=== PATIENT | male | born 1975 | race Caucasian/White ===

== ENCOUNTER → 2019-03-19 17:18 | Outpatient (CLI) | payer BC, SELFPAY ==
[2015-12-20 00:25] VITALS: BMI 51.2
[2019-03-19 18:03] LABS: Absolute Lymphocyte Count 2.07 X10^3/uL (0.83-4.51); Absolute Neutrophil Count 7.9 X10^3/uL (2.0-7.7); Basophil# 0.05 X10^3/uL; Basophil% 0.5 % (0-1); Eosinophil# 0.22 X10^3/uL; Hematocrit 41.7 % (40-54); Hemoglobin 13.2 g/dL (13.0-16.5); Lymphocyte # 2.07 X10^3/ul (4.0); Lymphocyte % 18.9 % (19-41); Mean Corp Hgb Conc 31.7 g/dL (32-36); Mean Corpuscular Hgb 27.1 pg (27.0-32.0); Mean Corpuscular Volume 85.6 fL (80-94); Mean Platelet Vol. 10.1 fl (6.2-12.0); Monocyte# 0.64 X10^3/uL; Monocyte% 5.8 % (0-10); NRBC Flagged by Analyzer 0 % (0-5); Neutrophil # 7.94 X10^3/uL (2.7-7.7); Neutrophil % 72.4 % (47-70); Platelet Count 274 K/mm3 (150-450); RBC Distribution Width CV 15.1 % (11.6-14.6); RBC Distribution Width SD 47.2 fl (35.1-43.9); Red Blood Count 4.87 M/mm3 (4.6-6.2)
[2019-03-19 18:32] LABS: ALB/GLOB Ratio 0.9 RATIO (0.9-2.4); AST(SGOT) 16 U/L (15-37); Alanine Aminotransfer ALT/SGPT 38 U/L (16-61); Albumin, Serum 3.7 g/dL (3.2-5.0); Alkaline Phosphatase 81 U/L (45-117); Anion Gap 7 (5-15); BUN 13 mg/dL (7-18); BUN/Creat Ratio 12.6 RATIO (10-20); Chloride 104 mmol/L (98-107); Creatinine, Serum 1.03 mg/dL (0.70-1.30); EST Glomerular Filtration Rate 84 mL/min (>60); Est Glom Filt Rate - Afr Amer 101 mL/min (>60); Globulin 3.9 g/dL (2.2-4.2); Glucose 86 mg/dL (74-106); Potassium 4.1 mmol/L (3.5-5.1); Protein, Total 7.6 g/dL (6.4-8.2); Sodium Level 141 mmol/L (136-145); Thyroid Stim Hormone (TSH) 1.46 uIU/mL (0.358-3.74)
== END ==
PROVIDERS: Family Provider Family Medicine; PCP Family Medicine; Visit Provider Family Medicine Geriatric Medicine
DX: Z00.00 Encounter for general adult medical examination without abnormal findings (principal)
CPT/HCPCS: 36415; 80053; 84443; 85025

== ENCOUNTER → 2019-03-19 17:41 | Outpatient (CLI) | payer BC, SELFPAY ==
--- NOTE | 2019-03-19 17:50 | RAD_ITS ---
STUDY: X-RAY - RIGHT FOOT CLINICAL: Male, 44 years old. Trauma TECHNIQUE: 3 view(s) of the foot. COMPARISON: None. FINDINGS: There is no evidence of fracture or dislocation. Plantar calcaneal spurring is present. There are no significant degenerative changes. There are no radiodense foreign bodies. RAD/Foot min 3 Views IMPRESSION: No fracture or dislocation. Plantar calcaneal spurring. Electronically Signed: Nahun Sun, at 21:14 EDT Tel , Service support ,
== END ==
PROVIDERS: Family Provider Family Medicine; PCP Family Medicine; Visit Provider Family Medicine Geriatric Medicine
DX: M79.609 Pain in unspecified limb (principal)
CPT/HCPCS: 73630

== ENCOUNTER → 2019-09-19 16:05 | Outpatient (CLI) | payer BC, SELFPAY ==
[2015-12-20 00:25] VITALS: BMI 51.2
[2019-09-19 17:30] LABS: Absolute Lymphocyte Count 2.26 X10^3/uL (0.83-4.51); Absolute Neutrophil Count 8.2 X10^3/uL (2.0-7.7); Basophil# 0.05 X10^3/uL; Basophil% 0.4 % (0-1); Eosinophil# 0.25 X10^3/uL; Eosinophils% 2.1 % (0-5); Hemoglobin 13.5 g/dL (13.0-16.5); Lymphocyte # 2.26 X10^3/ul (4.0); Lymphocyte % 19.3 % (19-41); Mean Corp Hgb Conc 31.4 g/dL (32-36); Mean Corpuscular Hgb 27.1 pg (27.0-32.0); Mean Corpuscular Volume 86.3 fL (80-94); Mean Platelet Vol. 10.5 fl (6.2-12.0); Monocyte# 0.85 X10^3/uL; Monocyte% 7.2 % (0-10); NRBC Flagged by Analyzer 0 % (0-5); Neutrophil # 8.23 X10^3/uL (2.7-7.7); Neutrophil % 70.2 % (47-70); Platelet Count 304 K/mm3 (150-450); RBC Distribution Width CV 15.2 % (11.6-14.6); RBC Distribution Width SD 47.7 fl (35.1-43.9); Red Blood Count 4.98 M/mm3 (4.6-6.2); White Blood Count 11.7 K/mm3 (4.4-11.0)
[2019-09-19 17:58] LABS: ALB/GLOB Ratio 0.9 RATIO (0.9-2.4); AST(SGOT) 22 U/L (15-37); Alanine Aminotransfer ALT/SGPT 45 U/L (16-61); Albumin, Serum 3.8 g/dL (3.2-5.0); Alkaline Phosphatase 86 U/L (45-117); Anion Gap 3 (5-15); BUN 13 mg/dL (7-18); BUN/Creat Ratio 12.3 RATIO (10-20); Calcium,Total 8.8 mg/dL (8.5-10.1); Chloride 104 mmol/L (98-107); Creatinine, Serum 1.06 mg/dL (0.70-1.30); EST Glomerular Filtration Rate 81 mL/min (>60); Est Glom Filt Rate - Afr Amer 98 mL/min (>60); Globulin 4.2 g/dL (2.2-4.2); Glucose 97 mg/dL (74-106); Potassium 4.2 mmol/L (3.5-5.1); Sodium Level 138 mmol/L (136-145); Thyroid Stim Hormone (TSH) 1.28 uIU/mL (0.358-3.74)
== END ==
PROVIDERS: Visit Provider Family Medicine Geriatric Medicine
DX: I10 Essential (primary) hypertension (principal)
CPT/HCPCS: 36415; 80053; 84443; 85025

== ENCOUNTER → 2020-04-02 15:42 | Outpatient (CLI) | payer OTHER, SELFPAY ==
[2015-12-20 00:25] VITALS: BMI 51.2
[2020-04-02 16:06] LABS: Absolute Lymphocyte Count 1.35 X10^3/uL (0.83-4.51); Absolute Neutrophil Count 9.2 X10^3/uL (2.0-7.7); Basophil# 0.04 X10^3/uL; Basophil% 0.4 % (0-1); Eosinophil# 0.17 X10^3/uL; Eosinophils% 1.5 % (0-5); Hematocrit 41.3 % (40-54); Hemoglobin 13.2 g/dL (13.0-16.5); Lymphocyte # 1.35 X10^3/ul (4.0); Mean Corpuscular Hgb 27.7 pg (27.0-32.0); Mean Corpuscular Volume 86.6 fL (80-94); Mean Platelet Vol. 10.5 fl (6.2-12.0); Monocyte# 0.46 X10^3/uL; Monocyte% 4.1 % (0-10); NRBC Flagged by Analyzer 0 % (0-5); Neutrophil # 9.18 X10^3/uL (2.7-7.7); Neutrophil % 81.6 % (47-70); Platelet Count 288 K/mm3 (150-450); RBC Distribution Width CV 14.7 % (11.6-14.6); RBC Distribution Width SD 46.3 fl (35.1-43.9); Red Blood Count 4.77 M/mm3 (4.6-6.2); White Blood Count 11.3 K/mm3 (4.4-11.0)
[2020-04-02 16:31] LABS: AST(SGOT) 26 U/L (15-37); Alanine Aminotransfer ALT/SGPT 49 U/L (16-61); Albumin, Serum 3.9 g/dL (3.2-5.0); Alkaline Phosphatase 89 U/L (45-117); Anion Gap 3 (5-15); BUN 11 mg/dL (7-18); BUN/Creat Ratio 9.6 RATIO (10-20); Calcium,Total 8.7 mg/dL (8.5-10.1); Chloride 105 mmol/L (98-107); Creatinine, Serum 1.14 mg/dL (0.70-1.30); EST Glomerular Filtration Rate 74 mL/min (>60); Est Glom Filt Rate - Afr Amer 90 mL/min (>60); Globulin 3.9 g/dL (2.2-4.2); Glucose 145 mg/dL (74-106); Potassium 4.1 mmol/L (3.5-5.1); Protein, Total 7.8 g/dL (6.4-8.2); Sodium Level 139 mmol/L (136-145); Thyroid Stim Hormone (TSH) 1.05 uIU/mL (0.358-3.74)
== END ==
PROVIDERS: Visit Provider Family Medicine Geriatric Medicine
DX: I10 Essential (primary) hypertension (principal)
CPT/HCPCS: 36415; 80053; 84443; 85025

== ENCOUNTER → 2021-06-09 10:41 | Outpatient (CLI) | payer OTHER, SELFPAY ==
[2021-06-09 13:05] LABS: D-Dimer Quantitative (DVT/PE) 2.11 FEU/ug/m (0.27-0.49)
== END ==
PROVIDERS: Visit Provider Family Medicine Geriatric Medicine
DX: R00.0 Tachycardia, unspecified (principal); R06.89 Other abnormalities of breathing
CPT/HCPCS: 36415; 85379; 87635; U0005; U0003

== ENCOUNTER → 2021-06-11 14:15 | Outpatient (CLI) | payer OTHER, SELFPAY ==
--- NOTE | 2021-06-11 14:26 | CT_ITS ---
STUDY: CTA CHEST REASON FOR EXAM: Male, 46 years old. R/O PE. Elevated d-dimer. Shortness of breath. RADIATION DOSAGE (If Supplied By Facility): CTDIvol = ( 12.66 ) mGy, DLP = ( 535.50 ) mGycm TECHNIQUE: The examination was performed with the intravenous administration of IV 100mL [id number]-[id number]. Post-processing of the angiographic images was performed, with multiplanar reformation and 3D reconstruction. Individualized dose optimization techniques were used for this CT. COMPARISON: None. FINDINGS: Normal enhancement of the main pulmonary artery and right and left pulmonary arteries. Normal enhancement of the bilateral peripheral pulmonary arteries. There is no demonstrated pulmonary embolism. Normal thoracic aorta and visualized great vessels. There is no demonstrated aortic dissection. Normal heart and pericardium. Normal mediastinum. Normal hilar regions. Normal visualized trachea and bronchi. The lungs are well expanded. Infiltration in the right lower lobe in keeping with the right lower lobe pneumonia. Follow-up is recommended. Normal pleura. Normal chest wall structures. Normal osseous structures. Normal visualized upper abdomen. CT/CTA Chest W/WO Contrast IMPRESSION: Right lower lobe pneumonia. Radiographic follow-up is recommended. Electronically Signed: Nick Collins MD at 15:13 EDT , Service support ,
== END ==
PROVIDERS: PCP Family Medicine Geriatric Medicine; Visit Provider Family Medicine Geriatric Medicine
DX: R79.1 Abnormal coagulation profile (principal)
CPT/HCPCS: 71275; Q9967

== ENCOUNTER 2021-11-28 14:16 | Emergency (ER) | payer OTHER, SELFPAY ==
[2021-11-28 14:17] VITALS: BP 172/94; PULSE 94; RESP 18; TEMP 36.7; O2SAT 99; BMI 51.6
--- NOTE | 2021-11-28 14:41 | ED.VIS.LOWEX ---
HPI History of Present Illness HPI Narrative: Patient presents with right knee pain that began yesterday after a fall. Patient states he landed on the anterior aspect of his right knee. Patient states he fell on a piece of angle iron that was in concrete. Patient states his pain is sharp, aching, and throbbing. Patient states his pain is worse with palpation and with ambulation. Patient states he has been taking ibuprofen with minimal relief. Patient denies any paresthesias or weakness. Patient denies any head injury or loss of consciousness. Patient denies any other injuries. Chief Complaint: Lower Extremity Injury Informant: patient Occured/Mechanism Mechanism/Context: Yes fall Onset/Context/Timing Onset: Yesterday Context: Sudden Onset Timing: Continuous Quality of Pain: Sharp, Aching and Throbbing Location: Right knee Worsened by: Palpation, ambulation Relieved by: Ibuprofen Associated Symptoms Associated Symptoms: Negative for Parasthesia, Weakness and Loss of Funtion PFSH PFS Medical History (Updated 11/28/21 @ 15:[address] Dwight White DO) GERD (gastroesophageal reflux disease) Hypertension Home Medications omeprazole 20 mg PO DAILY 12/20/15 [History Last Taken Unknown] lisinopril 11/28/21 [History Last Taken Unknown] Allergy/AdvReac Type Severity Reaction Status Date / Time No Known Allergies Allergy Verified 11/28/21 14:18 Surgical History (Updated 11/28/21 @ 14:[address] Dwight White DO) Hx of tonsillectomy Social History Smoking Status: Never smoker ROS ROS ED Constitutional Constitutional ED: Denies chills or fever(s) Eyes Eyes: Denies blurry vision or change in vision ENT ENT ED: Denies rhinorrhea or sore throat Cardiovascular Cardiovascular: Denies chest pain or palpitations Respiratory/Chest Respiratory/Chest: Denies cough or dyspnea Gastrointestinal Gastrointestinal: Denies nausea or vomiting Genitourinary Genitourinary ED: Denies dysuria or hematuria Musculoskeletal Musculoskeletal: Denies back pain or neck pain Integumentary Denies abscess or rash Neurologic Neurologic: Denies headache(s) or weakness Allergic/Immunologic Allergic/Immunologic ED: Denies mouth swelling or urticaria EXAM Physical Exam Const Vital Signs: 11/28/21 14:17 Temperature 98.1 F Temperature Source Temporal Pulse Rate 94 Respiratory Rate 18 Blood Pressure 172/94 H Blood Pressure Mean 120 Pulse Ox 99 Oxygen Delivery Method Room Air Positive well nourished, well developed and obese General Appearance ED: well developed and NAD Nutritional Appearance: obese HEENT Reports moist mucous membranes Neck full ROM Extremity Extremity Narrative: There is tenderness over the anterior aspect of the right knee. There is a superficial linear abrasion noted. There is no bleeding. There is no surrounding erythema or ecchymosis. Range of motion of the right knee was limited in all motion secondary to pain. There is guarding on examination but there is no laxity appreciated. There is pain with valgus testing however. Extensor mechanism is intact. Pedal pulses are equal bilaterally. Sensation was intact to light touch in all digits. Capillary refill was less than 2 seconds in all digits. There is no calf tenderness. Neuro oriented x3, CN's II-XII intact bilaterally, moves all extremities and no sensory deficits noted Sensorium / Orientation: alert Motor Exam: strength 5/5 throughout Psych mental status grossly normal MDM MDM MDM Narrative Medical decision making narrative: X-rays of the right knee were obtained. There are 4 views. On my interpretation, there is no acute fracture. There is no dislocation. There is no soft tissue swelling. Radiologist also interpreted the x-rays and agrees. Patient was advised of his findings. Patient was instructed to ice and elevate the right knee. Patient was instructed to continue Tylenol and ibuprofen as needed for pain. Patient was instructed to follow-up with his primary care physician in 5 to 7 days. Patient understood and was agreeable with the plan. All questions were answered. Discharge Plan Triage Chief Complaint: Lower Extremity Injury ED Provider: Dwight White Dx/Rx/DC Orders Clinical Impression: Contusion of right knee, initial encounter, Abrasion, right knee, initial encounter Instructions: ED Contusion, Lower Extremity Prescriptions: No Action omeprazole 20 MG capsule 20 mg PO DAILY RF: 0 lisinopril 20 mg tablet RF: 0 Primary Care Provider: Francis Penn Chi Referrals: Francis Penn Chi, MD [Primary Care Provider] - 5-7 Days Disposition Disposition: Home, Self Care
--- NOTE | 2021-11-28 14:45 | RAD_ITS ---
STUDY: X-RAY - RIGHT KNEE REASON FOR EXAM: Male, 46 years old. Injury/Pain TECHNIQUE: 4 view(s) of the knee. COMPARISON: None. FINDINGS: Please see the impression. RAD/Knee 4 or More Views IMPRESSION: No acute fracture or dislocation in the right knee. No significant knee joint effusion. Electronically Signed: Fabian Rees MD at 15:24 EDT ,
== END 2021-11-28 15:33 | disposition home or self-care (01) ==
PROVIDERS: Emergency Provider Emergency Medicine; PCP Family Medicine Geriatric Medicine; Visit Provider Emergency Medicine
DX: S80.01XA Contusion of right knee, initial encounter (principal); S80.211A Abrasion, right knee, initial encounter; W19.XXXA Unspecified fall, initial encounter; I10 Essential (primary) hypertension; K21.9 Gastro-esophageal reflux disease without esophagitis
CPT/HCPCS: 73564; 99282

== ENCOUNTER 2022-04-04 22:31 | Emergency (ER) | payer OTHER, SELFPAY ==
[2022-04-04 22:32] VITALS: BP 188/98; PULSE 83; RESP 14; TEMP 37.2; O2SAT 98; BMI 52.0
--- NOTE | 2022-04-04 22:45 | EX.ED.DYSGE1 ---
HPI History of Present Illness Chief Complaint: Dental Narrative Narrative: Patient is a 47-year-old male with past medical history of hypertension and GERD. He also reports a history of bad teeth. He states that he noticed some pain in his left lower jaw a few days ago that would come and go. He denies any trauma prior to the pain beginning he denies any fevers chills difficulty breathing or swallowing. He states the pain has increased and he is concerned about an infectious process and therefore comes in for evaluation. PFSH PFSH Medical History GERD (gastroesophageal reflux disease) Hypertension Home Medications omeprazole 20 mg capsule,delayed release 20 mg PO DAILY 12/20/15 [History Last Taken Unknown] lisinopril 20 mg tablet 20 mg PO DAILY 11/28/21 [History Last Taken Unknown] oxycodone-acetaminophen 5 mg-325 mg tablet (Endocet) 1 tab PO Q6H PRN pain 3 days #12 tabs 04/04/22 [Rx Last Taken Unknown] penicillin V potassium 500 mg tablet 500 mg PO 4X/DAY #40 tabs 04/04/22 [Rx Last Taken Unknown] Allergy/AdvReac Type Severity Reaction Status Date / Time No Known Allergies Allergy Verified 04/04/22 23:01 Surgical History Hx of tonsillectomy Social History Smoking Status: Never smoker ROS ROS ED Constitutional Constitutional ED: Denies chills or fever(s) ENT ENT ED: Reports other Details: Positive dental pain ; Denies sore throat Cardiovascular Cardiovascular: Denies chest pain Respiratory/Chest Respiratory/Chest: Denies cough or dyspnea Gastrointestinal Gastrointestinal: Denies abdominal pain, diarrhea, nausea or vomiting Genitourinary Genitourinary ED: Denies dysuria Musculoskeletal Musculoskeletal: Denies myalgias Integumentary Denies rash Neurologic Neurologic: Denies headache(s) Hematologic/Lymphatic Hematologic/Lymphatic: Denies easy bleeding or easy bruising EXAM Physical Exam Const Vital Signs: 04/04/22 22:32 Temperature 98.9 F Temperature Source Temporal Pulse Rate 83 Respiratory Rate 14 Blood Pressure 188/98 H Blood Pressure Mean 128 Pulse Ox 98 Oxygen Delivery Method Room Air Positive well nourished and well developed General Appearance ED: well developed HEENT Reports moist mucous membranes HEENT Narrative: Multiple dental caries are present without obvious dental abscess. No oral lesions no airway edema or compromise Eyes PERRL and EOMs intact bilaterally Neck supple Neck Narrative: No brawny edema in the submental space to suggest Elvin's angina Resp normal respiratory effort and clear to auscultation bilaterally Cardio regular rate and regular rhythm Extremity normal to inspection Neuro oriented x3 and CN's II-XII intact bilaterally Sensorium / Orientation: alert Psych mental status grossly normal Skin no rashes or lesions noted MDM MDM MDM Narrative Medical decision making narrative: Patient presented to the ER afebrile without signs of respiratory distress or Elvin's angina therefore I felt no need for imaging or laboratory study. Patient was given a dental block as documented below. Following this will be started on Pen-Vee K as his history and exam is consistent with underlying dental infection. However as he does not have signs of airway compromise or systemic infection there is no need for further work-up and he is otherwise safe for discharge Patient was given a left inferior alveolar dental block using 3 mL of 2% lidocaine with epinephrine. Patient achieved good anesthesia with the injection and tolerated procedure well without complication. Discharge Plan Triage Chief Complaint: Dental ED Provider: Navneet Mathur Dx/Rx/DC Orders Clinical Impression: Dental caries, Dental infection, Hypertension Instructions: ED Dental Pain Prescriptions: New oxycodone-acetaminophen [Endocet] 5-325 mg tablet 1 tab PO Q6H PRN (Reason: pain) 3 Days Qty: 12 0RF penicillin V potassium 500 mg tablet 500 mg PO 4X/DAY Qty: 40 0RF No Action omeprazole 20 MG capsule 20 mg PO DAILY lisinopril 20 mg tablet 20 mg PO DAILY Label Comments: TAKE 2 TABLETS BY MOUTH ONCE DAILY Primary Care Provider: Kelechi Jauregui Referrals: Francis Penn Chi, MD [Med Staff - Active Staff] - Disposition Disposition: Home, Self Care
[2022-04-04] MEDS: Penicillin Vk 250 MG Tablet 500 MG PO (23:08)
[2022-04-04] MEDS: Lidocaine 2% /Epi 1:100 (20ml) 20 ML VIAL INFILT (23:11)
== END 2022-04-04 23:27 | disposition home or self-care (01) ==
PROVIDERS: Emergency Provider Emergency Medicine; PCP Family Medicine; Visit Provider Emergency Medicine
DX: K04.7 Periapical abscess without sinus (principal); I10 Essential (primary) hypertension; K02.9 Dental caries, unspecified; K21.9 Gastro-esophageal reflux disease without esophagitis
CPT/HCPCS: 64999; 99283

== ENCOUNTER 2022-04-18 16:35 | Emergency (ER) | payer OTHER, SELFPAY ==
[2022-04-18 16:36] VITALS: BP 157/108; PULSE 93; RESP 16; TEMP 37.2; O2SAT 98; BMI 51.8
--- NOTE | 2022-04-18 17:04 | CT_ITS ---
INDICATION: Kidney Stone EXAMINATION: CT ABDOMEN AND PELVIS WITHOUT CONTRAST - CT Abdomen And Pelvis W/O Contrast Injection TECHNIQUE: Helically acquired images were obtained of the abdomen and pelvis without oral or IV contrast. A radiation dose optimization technique was used for this scan. IV Contrast dosage and agent: None. Oral contrast: None. RADIATION DOSAGE (If Supplied By Facility): CTDIvol = ( 24.18 ) mGy, DLP = ( 1328.96 ) mGycm COMPARISON: None. FINDINGS: LOWER CHEST: Lung bases are clear. No cardiomegaly or pericardial effusion. LIVER: The liver has normal configuration and density given the limitation of noncontrast exam. No focal mass lesions noted. Diffuse fatty infiltration however is present. GALLBLADDER AND BILIARY TREE: No calcified gallstones. No gallbladder distension or wall edema. No intra- or extrahepatic biliary ductal dilation. PANCREAS: No focal cystic or solid mass. SPLEEN: Normal size without focal cystic or solid mass. ADRENAL GLANDS: No nodules. KIDNEYS AND URETERS: Normal renal size and position. No hydronephrosis. PERITONEUM: No ascites or free air. No other fluid collection. BOWEL: No evidence of acute appendicitis. No stomach or bowel distension. No focal inflammatory change. No evidence diverticulitis. LYMPH NODES: No enlarged mesenteric or retroperitoneal lymph nodes. VESSELS: Aorta is non-dilated. URINARY BLADDER: Unremarkable. REPRODUCTIVE ORGANS: No pelvic masses. ABDOMINAL WALL: No discrete abdominal or pelvic wall hernia. BONES: Mild multilevel osteophyte formation throughout the lumbar spine without acute bony changes noted. CT/Abdomen/Pelvis without Cont IMPRESSION: 1. No evidence renal calcifications or ureteral stones or CT evidence of obstructive uropathy. 2. Diffuse fatty infiltration liver consistent with hepatic steatosis. No hepatic masses or ductal dilatation. No evidence of cholelithiasis. 3. No masses bowel obstruction abscess free fluid or free air. Normal appendix noted. Electronically Signed: Jalil Tillman MD at 19:08 EDT ,
--- NOTE | 2022-04-18 17:05 | EDS_ITS ---
HPI History of Present Illness Chief Complaint: Flank Pain Informant: patient Narrative Narrative: Waxing and waning right flank pain since Monday after awakening. No pain down the legs. He has chronic paresthesias along the lateral thigh for last 20 years. Today no dysuria. No fevers. No nausea or vomiting. Went to urgent care was sent here for evaluation. History of hypertension and GERD. Denies history of kidney stones. Pain is worse with certain movements relieved with side bending to the left. Prior similar symptoms: No PFSH PFSH Medical History GERD (gastroesophageal reflux disease) Hypertension Home Medications omeprazole 20 mg capsule,delayed release 20 mg PO DAILY 12/20/15 [History Last Taken Unknown] lisinopril 20 mg tablet 20 mg PO DAILY 11/28/21 [History Last Taken Unknown] oxycodone-acetaminophen 5 mg-325 mg tablet (Endocet) 1 tab PO Q6H PRN pain 3 days #12 tabs 04/04/22 [Rx Last Taken Unknown] penicillin V potassium 500 mg tablet 500 mg PO 4X/DAY #40 tabs 04/04/22 [Rx Last Taken Unknown] cephalexin 500 mg capsule 500 mg PO Q8H #21 caps 04/18/22 [Rx Last Taken Unknown] Allergy/AdvReac Type Severity Reaction Status Date / Time No Known Allergies Allergy Verified 04/18/22 16:36 Surgical History Hx of tonsillectomy Social History Smoking Status: Never smoker ROS ROS ED Constitutional Constitutional ED: Denies chills, fever(s) or sweats Eyes Eyes: Denies change in vision ENT ENT ED: Denies dysphagia or sore throat Cardiovascular Cardiovascular: Denies chest pain, leg edema, palpitations or racing heartbeat Respiratory/Chest Respiratory/Chest: Denies cough, dyspnea or dyspnea on exertion Gastrointestinal Gastrointestinal: Denies abdominal pain, diarrhea, nausea or vomiting Genitourinary Genitourinary ED: Reports dysuria; Denies hematuria or urinary frequency Musculoskeletal Musculoskeletal: Reports back pain; Denies extremity pain or neck pain Integumentary Denies rash or wounds Neurologic Neurologic: Denies headache(s), paresthesias or weakness EXAM Physical Exam Const Vital Signs: 04/18/22 16:36 04/18/22 18:13 04/18/22 19:00 Temperature 98.9 F Temperature Source Temporal Pulse Rate 93 Respiratory Rate 16 16 16 Blood Pressure 157/108 H Blood Pressure Mean 124 Pulse Ox 98 Oxygen Delivery Method Room Air 04/18/22 20:00 04/18/22 20:07 Temperature Temperature Source Pulse Rate Respiratory Rate 16 16 Blood Pressure Blood Pressure Mean Pulse Ox Oxygen Delivery Method Positive well nourished and well developed General Appearance ED: well developed and NAD HEENT Reports moist mucous membranes normocephalic and atraumatic Eyes PERRL, EOMs intact bilaterally and conjunctivae normal General Eye ED: Yes normal appearance of both eyes Neck no lymphadenopathy and supple General: Negative for tenderness Chest Wall Chest: Negative for tenderness Resp normal respiratory effort and normal air movement Effort and Inspection: symmetric chest movement; Negative for respiratory distress Cardio regular rate, regular rhythm and no murmurs Peripheral Pulses: pulses 2+ throughout GI normal to inspection, nondistended, normoactive bowel sounds and non-tender Palpation: Negative for guarding or rebound tenderness present Back/Spine no CVA tenderness Back/Spine Narrative: No midline thoracic or lumbar tenderness reproducible paralumbar right-sided tenderness. Straight leg test was negative. Extremity normal to inspection General Extremety ED: Negative for edema or tenderness General Extremity: Negative for edema Neuro oriented x3 and no sensory deficits noted Sensorium / Orientation: awake and alert Skin no rashes or lesions noted and no wounds MDM MDM MDM Narrative Medical decision making narrative: Patient flank pain with UTI symptoms renal stone protocol. Treated IV Toradol with improvement of symptoms. Fluids were given. Labs White count 12 creatinine 1.2. Urine noted signs of infection culture sent Rocephin IV started. Flank CT negative for any acute process. Patient continue on antibiotics he will continue ibuprofen 6 mL every 6 hours. Return precautions. All questions were answered. Lab Data Attestation: I reviewed the patient's lab results. Labs: Laboratory Results - last 24 hr 04/18/22 04/18/22 04/18/22 16:57 16:57 18:11 WBC 12.3 H RBC 5.00 Hgb 13.7 Hct 43.5 MCV 87.0 MCH 27.4 MCHC 31.5 L RDW Std Deviation 46.4 H RDW Coeff of Enrique 14.6 Plt Count 308 MPV 10.2 Immature Gran % (Auto) 0.400 Neut % (Auto) 73.4 H Lymph % (Auto) 16.7 L [place] % (Auto) 7.5 Eos % (Auto) 1.5 Baso % (Auto) 0.5 Absolute Neuts (auto) 9.0 H Absolute Lymphs (auto) 2.06 Nucleated RBC % 0 Sodium 139 Potassium 4.1 Chloride 103 Carbon Dioxide 31.0 Anion Gap 5 BUN 11 Creatinine 1.21 Estim Creat Clear Calc 78.76 Est GFR (MDRD) Af Amer 83 Est GFR (MDRD) Non-Af 69 BUN/Creatinine Ratio 9.1 L Glucose 122 H Calcium 9.3 Urine Color Yellow Urine Clarity Sl. Cloudy Urine pH 6.0 Ur Specific [place] 1.015 Urine Protein 100 H Urine Glucose (UA) Normal Urine Ketones Negative Urine Occult Blood 250 H Urine Nitrite Negative Urine Bilirubin Negative Urine Urobilinogen Normal Ur Leukocyte Esterase 500 H Urine RBC 10-25 SEEN Urine WBC 25-50 SEEN Ur Squamous Epith Cells 0 SEEN Urine Bacteria 2+ Urine Mucus 0 SEEN Radiography Diagnostic Testing: Clinical Impression(s) from Imaging Studies Abdomen/Pelvis CT 04/18/22 17:04 IMPRESSION: 1. No evidence renal calcifications or ureteral stones or CT evidence of obstructive uropathy. 2. Diffuse fatty infiltration liver consistent with hepatic steatosis. No hepatic masses or ductal dilatation. No evidence of cholelithiasis. 3. No masses bowel obstruction abscess free fluid or free air. Normal appendix noted. Electronically Signed: Jalil Tillman MD at 19:08 EDT , Discharge Plan Triage Chief Complaint: Flank Pain ED Provider: Everton Wheat Dx/Rx/DC Orders Clinical Impression: Complicated urinary tract infection, Acute flank pain Instructions: ED Pyelonephritis, Male (Adult) Prescriptions: New cephalexin [cephalexin] 500 mg capsule 500 mg PO Q8H Qty: 21 0RF No Action omeprazole 20 MG capsule 20 mg PO DAILY lisinopril 20 mg tablet 20 mg PO DAILY Label Comments: TAKE 2 TABLETS BY MOUTH ONCE DAILY oxycodone-acetaminophen [Endocet] 5-325 mg tablet 1 tab PO Q6H PRN (Reason: pain) 3 Days Qty: 12 0RF penicillin V potassium 500 mg tablet 500 mg PO 4X/DAY Qty: 40 0RF Primary Care Provider: Kelechi Jauregui Referrals: Kelechi Jauregui MD [Primary Care Provider] - 3-5 Days if not improving Activity Restrictions/Additional Instructions: Urine with infection. CT scan negative for any acute process. No kidney stones. Take antibiotic as prescribed. Ibuprofen 600 mg every 6 hours as needed. Follow-up with your doctor. Return if any worsening symptoms. Disposition Disposition: Home, Self Care Discharge Date/Time: 04/18/22 20:43
[2022-04-18] MEDS: 0.9% Normal Saline 1,000 ML 250 ML IV (17:20)
[2022-04-18] MEDS: Ketorolac 15 MG/ML Vial IV (17:20)
[2022-04-18 17:24] LABS: Absolute Lymphocyte Count 2.06 X10^3/uL (0.83-4.51); Basophil# 0.06 X10^3/uL; Basophil% 0.5 % (0-1); Eosinophil# 0.18 X10^3/uL; Eosinophils% 1.5 % (0-5); Hematocrit 43.5 % (40-54); Hemoglobin 13.7 g/dL (13.0-16.5); Lymphocyte # 2.06 X10^3/ul (0.83-4.51); Lymphocyte % 16.7 % (19-41); Mean Corp Hgb Conc 31.5 g/dL (32-36); Mean Corpuscular Hgb 27.4 pg (27.0-32.0); Mean Platelet Vol. 10.2 fl (6.2-12.0); Monocyte# 0.92 X10^3/uL; Monocyte% 7.5 % (0-10); NRBC Flagged by Analyzer 0 % (0-5); Neutrophil # 9.03 X10^3/uL (2.7-7.7); Neutrophil % 73.4 % (47-70); Platelet Count 308 K/mm3 (150-450); RBC Distribution Width CV 14.6 % (11.6-14.6); RBC Distribution Width SD 46.4 fl (35.1-43.9); White Blood Count 12.3 K/mm3 (4.4-11.0)
[2022-04-18 17:37] LABS: Anion Gap 5 (5-15); BUN 11 mg/dL (7-18); BUN/Creat Ratio 9.1 RATIO (10-20); Calcium,Total 9.3 mg/dL (8.5-10.1); Chloride 103 mmol/L (98-107); Creatinine, Serum 1.21 mg/dL (0.70-1.30); EST Glomerular Filtration Rate 69 mL/min (>60); Est Glom Filt Rate - Afr Amer 83 mL/min (>60); Estimated Creatinine Clearance 78.76 ml/min; Glucose 122 mg/dL (74-106); Potassium 4.1 mmol/L (3.5-5.1); Sodium Level 139 mmol/L (136-145)
[2022-04-18 18:13] VITALS: RESP 16
[2022-04-18 18:30] LABS: Mucous, Urine 0 SEEN /hpf (<or=2+); Squamous Epithelial Cells - UA 0 SEEN /hpf (0-5)
[2022-04-18 18:35] LABS: Color, Urine Yellow (Yellow); Glucose, Dipstick Normal (Normal); Ketone-Dipstick Negative (Negative); Leukocyte Esterase-Dipstick 500 /ul (Negative); Nitrite-Dipstick Negative (Negative); Occult Blood-Urine 250 /ul (Negative); Protein-Dipstick 100 mg/dl (Negative); Specific Gravity, Urine 1.015 (1.002-1.030); Urine Bilirubin Dipstick Negative (Negative); Urine Clarity Sl. Cloudy (Clear); Urine Urobilinogen Normal (Normal)
[2022-04-18 18:42] LABS: Bacteria 2+ /hpf (None Seen); Red Blood Cells-Urine 10-25 SEEN /hpf (0-5); White Blood Cells 25-50 SEEN /hpf (0-5)
[2022-04-18 19:00] VITALS: RESP 16
[2022-04-18] MEDS: Ceftriaxone 1 GM/50 ML BAG IV (19:57)
[2022-04-18 20:00] VITALS: RESP 16
[2022-04-18 20:07] VITALS: RESP 16
== END 2022-04-18 20:43 | disposition home or self-care (01) ==
PROVIDERS: Emergency Provider Emergency Medicine; PCP Family Medicine; Visit Provider Emergency Medicine
DX: N39.0 Urinary tract infection, site not specified (principal); I10 Essential (primary) hypertension; R10.9 Unspecified abdominal pain; K21.9 Gastro-esophageal reflux disease without esophagitis
CPT/HCPCS: 74176; 80048; 81001; 85025; 87077; 87086; 87088; 87186; 96361; 96365; 96375; 99283; J7030; A4216

== ENCOUNTER 2023-04-03 16:39 | Emergency (ER) | payer OTHER, SELFPAY ==
[2023-04-03 16:40] VITALS: BP 146/101; PULSE 74; RESP 14; TEMP 36.6; O2SAT 97; BMI 48.3
--- NOTE | 2023-04-03 18:21 | EX.ED.GUMALE ---
HPI History of Present Illness Chief Complaint: Complaint Informant: patient Narrative Narrative: Patient complains of hematuria. Patient felt perfectly fine today. He went in for routine work physical. He had to give 2 urine samples. They gave him 2 urine cups. He went into the restroom. He urinated into the 1 cup. He states he had held his urine for a long time and really had to go badly. He was trying to switch urine cups to urinate and the second 1 when he dropped the second cup. He pinched off the tip of his penis firmly bent over and picked up the cup. When he bent over he got some pain in the lower pelvic area. He then urinated in the cup and everything was fine. No more pain. About 2-1/2 hours later at about 230 this afternoon he urinated and had blood in the urine. He states the urine was yellow in the bowl and you could see the urine but it had a string and or string of blood going down the lower part of the bowl. The urine was not diffusely bloody. It sounds like he is describing a clot. He states he has been scared to urinate since then. He states he has a sensation in his pelvic area but no pain or discomfort now. He had a UTI once in his life but this does not feel the same. He is not on any blood thinners. [facility] Medical History GERD (gastroesophageal reflux disease) Hypertension Home Medications omeprazole 20 mg capsule,delayed release 20 mg PO DAILY 12/20/15 [History Last Taken Unknown] lisinopril 20 mg tablet 20 mg PO DAILY 11/28/21 [History Last Taken Unknown] oxycodone-acetaminophen 5 mg-325 mg tablet (Endocet) 1 tab PO Q6H PRN pain 3 days #12 tabs 04/04/22 [Rx Last Taken Unknown] penicillin V potassium 500 mg tablet 500 mg PO 4X/DAY #40 tabs 04/04/22 [Rx Last Taken Unknown] cephalexin 500 mg capsule 500 mg PO Q8H #21 caps 04/18/22 [Rx Last Taken Unknown] Allergy/AdvReac Type Severity Reaction Status Date / Time No Known Allergies Allergy Verified 04/03/23 16:40 Surgical History Hx of tonsillectomy Social History Smoking Status: Never smoker ROS ROS ED ROS Narrative A complete review of systems was performed and is negative except as documented in the history of present illness. Some specific details below. Constitutional: No recent fevers or chills. ENT: No GERD symptoms. CV: No chest pain or palpitations. Respiratory: No dyspnea. No hemoptysis. No difficulty taking breaths. GI: No nausea vomiting abdominal pain or change in bowel movements. : See history of present illness. Musculoskeletal: No recent trauma. No pains. Skin: No rash. Nondiaphoretic. Neuro: No weakness or numbness. Endocrine: No polyuria or polydipsia. EXAM Physical Exam Narrative Exam Narrative: Patient awake alert no acute distress laying comfortably in bed. HEENT is normal. No intraoral petechiae. Lungs are clear bilaterally and saturations are normal at 97% on room air showing no hypoxia. Heart is regular. Abdomen is obese but otherwise benign. No tenderness including no suprapubic tenderness. : There is a small amount of dried blood at the tip of the penis. But there is no deformity or swelling. No inguinal pain swelling or hernia. Testicles are not tenderness. Overall normal exam except a small amount of dried blood. There is no CVA tenderness. Skin shows no pallor or abnormal bruising petechiae or purpura. Const Vital Signs: 04/03/23 16:40 Temperature 98 F Temperature Source Temporal Pulse Rate 74 Respiratory Rate 14 Blood Pressure 146/101 H Blood Pressure Mean 116 Pulse Ox 97 Oxygen Delivery Method Room Air MDM MDM MDM Narrative Medical decision making narrative: Patient's urinalysis was yellow. The lab record is cloudy but what I see in the room actually looks pretty clear. It might be slightly concentrated. He does have a few red cells but no white cells. But there is no gross blood seen. Patient is not having the pain he had no difficulty urinating. I do not think we need to do any further work-up. He has no bleeding bruising or petechiae. No history of abnormal bleeding. He had a little bit of blood after an episode where his bladder was very distended and he is stopped urinating briefly. He had blood in the urine once but it is cleared. Follow-up I think is appropriate. I have encouraged a little bit more fluids to maintain hydration and frequent slightly pale urine. We discussed returning with fevers, pain, difficulty urinating or passing stream, recurrent blood or any other concerns Lab Data Attestation: I reviewed the patient's lab results. Labs: Laboratory Results - last 24 hr 04/03/23 18:15 Urine Color Yellow Urine Clarity Sl. Cloudy Urine pH 5.0 Ur Specific [place] 1.020 Urine Protein 15 H Urine Glucose (UA) Normal Urine Ketones Negative Urine Occult Blood 150 H Urine Nitrite Negative Urine Bilirubin Negative Urine Urobilinogen Normal Ur Leukocyte Esterase Negative Urine RBC 10-25 SEEN Urine WBC 0 SEEN Ur Squamous Epith Cells 0-5 SEEN Amorphous Sediment 1+ URATE Urine Bacteria 0 SEEN Urine Mucus 0 SEEN Discharge Plan Triage Chief Complaint: Complaint ED Provider: Mac Starr Dx/Rx/DC Orders Clinical Impression: Hematuria Instructions: ED Hematuria Prescriptions: No Action omeprazole 20 MG capsule 20 mg PO DAILY lisinopril 20 mg tablet 20 mg PO DAILY Patient Comments: TAKE 2 TABLETS BY MOUTH ONCE DAILY oxycodone-acetaminophen [Endocet] 5-325 mg tablet 1 tab PO Q6H PRN (Reason: pain) 3 Days Qty: 12 0RF penicillin V potassium 500 mg tablet 500 mg PO 4X/DAY Qty: 40 0RF cephalexin [cephalexin] 500 mg capsule 500 mg PO Q8H Qty: 21 0RF Primary Care Provider: Kelechi Jauregui Referrals: Kelechi Jauregui MD [Primary Care Provider] - 3-5 Days if not improving Disposition Disposition: Home, Self Care
[2023-04-03 18:22] LABS: Bacteria 0 SEEN /hpf (None Seen); Mucous, Urine 0 SEEN /hpf (<or=2+); White Blood Cells 0 SEEN /hpf (0-5)
[2023-04-03 18:27] LABS: Color, Urine Yellow (Yellow); Glucose, Dipstick Normal (Normal); Ketone-Dipstick Negative (Negative); Leukocyte Esterase-Dipstick Negative /ul (Negative); Nitrite-Dipstick Negative (Negative); Occult Blood-Urine 150 /ul (Negative); Protein-Dipstick 15 mg/dl (Negative); Urine Bilirubin Dipstick Negative (Negative); Urine Clarity Sl. Cloudy (Clear); Urine Urobilinogen Normal (Normal)
[2023-04-03 18:43] LABS: Red Blood Cells-Urine 10-25 SEEN /hpf (0-5); Squamous Epithelial Cells - UA 0-5 SEEN /hpf (0-5)
[2023-04-03 18:44] LABS: Amorphous Sediment 1+ URATE
== END 2023-04-03 19:15 | disposition home or self-care (01) ==
PROVIDERS: Emergency Provider Emergency Medicine; PCP Family Medicine; Visit Provider Emergency Medicine
DX: R31.9 Hematuria, unspecified (principal); I10 Essential (primary) hypertension; K21.9 Gastro-esophageal reflux disease without esophagitis; Z79.899 Other long term (current) drug therapy
CPT/HCPCS: 81001; 99282

== ENCOUNTER 2024-03-08 05:49 | Emergency (ER) | payer OTHER, SELFPAY ==
[2024-03-08 05:49] VITALS: BP 151/89; PULSE 74; RESP 16; TEMP 36.8; O2SAT 97; BMI 51.6
--- NOTE | 2024-03-08 06:01 | CT_ITS ---
INDICATION: flank pain EXAMINATION: CT ABDOMEN AND PELVIS WITHOUT CONTRAST - CT Abdomen And Pelvis W/O Contrast Injection TECHNIQUE: Helically acquired images were obtained of the abdomen and pelvis without oral or IV contrast. The protocol utilizes one or more of the following dose reduction techniques: automated exposure control, adjustment of mA and/or kV according to patient size,and/or use of iterative reconstruction technique. IV Contrast dosage and agent: None. Oral contrast: None. RADIATION DOSAGE (If Supplied By Facility): CTDIvol = ( 24.18 ) mGy, DLP = ( 1316.88 ) mGycm COMPARISON: CT Abdomen/PelvisSep 2021 FINDINGS: LOWER CHEST: Lung bases are clear. No cardiomegaly or pericardial effusion. LIVER: Fatty infiltration of the liver. No focal mass. GALLBLADDER AND BILIARY TREE: No calcified gallstones. No gallbladder distension or wall edema. No intra- or extrahepatic biliary ductal dilation. PANCREAS: No focal cystic or solid mass. SPLEEN: Normal size without focal cystic or solid mass. ADRENAL GLANDS: No nodules. KIDNEYS AND URETERS: Normal renal size and position. No hydronephrosis. PERITONEUM: No ascites or free air. No other fluid collection. BOWEL: No evidence of acute appendicitis. No stomach or bowel distension. No focal inflammatory change. LYMPH NODES: No enlarged mesenteric or retroperitoneal lymph nodes. VESSELS: Aorta is non-dilated. URINARY BLADDER: Unremarkable. REPRODUCTIVE ORGANS: No pelvic masses. ABDOMINAL WALL: No discrete abdominal or pelvic wall hernia. BONES: No lytic or blastic abnormality. CT/Abdomen/Pelvis without Cont IMPRESSION: Negative CT abdomen and pelvis without oral or IV contrast. Electronically Signed: Malaika Palencia MD at 7:21 EDT ,
--- NOTE | 2024-03-08 06:01 | EX.ED.DYSGE1 ---
HPI History of Present Illness Chief Complaint: Other, Pain/Inj Informant: patient and family Narrative Narrative: Worsening right flank pain rating to his groin. Started low back pain week ago he took his cyclobenzaprine that improved his symptoms. However pain returned on his groin. Saw his PCP yesterday started on a Medrol Dosepak along with adding tizanidine. No urinary symptoms. States he felt constipated recently took MiraLAX help with symptoms. No urinary symptoms. No fevers. No nausea or vomiting. Denies any abdominal surgeries in the past. Denies radicular pain down the leg. No history of kidney stones. [facility] Medical History Hypertension GERD (gastroesophageal reflux disease) Home Medications ?Medication ?Instructions ?Recorded ?Last Taken ?Type omeprazole 20 mg capsule,delayed 20 mg PO DAILY 12/20/15 Unknown History release lisinopril 20 mg tablet 20 mg PO DAILY 11/28/21 Unknown History cyclobenzaprine 10 mg tablet 10 mg PO TID PRN PRN muscle spasm 03/08/24 Unknown History metformin 500 mg tablet,extended 500 mg PO DAILY 03/08/24 Unknown History release 24 hr oxycodone-acetaminophen 5 mg-325 1 tab PO Q6H PRN PRN Pain 3 days 03/08/24 Unknown Rx mg tablet #12 TABLETS prednisone 10 mg tablet See Taper PO DAILY 03/08/24 Unknown History tizanidine 4 mg capsule 4 mg PO TID 03/08/24 Unknown History Allergy/AdvReac Type Severity Reaction Status Date / Time No Known Allergies Allergy Verified 03/08/24 05:50 Surgical History Hx of tonsillectomy Social History Smoking Status: Never smoker ROS ROS ED Constitutional Constitutional ED: Denies chills, fever(s) or sweats Eyes Eyes: Denies change in vision ENT ENT ED: Denies dysphagia or sore throat Cardiovascular Cardiovascular: Denies chest pain, leg edema, palpitations or racing heartbeat Respiratory/Chest Respiratory/Chest: Denies cough, dyspnea or dyspnea on exertion Gastrointestinal Gastrointestinal: Reports abdominal pain; Denies diarrhea, nausea or vomiting Genitourinary Genitourinary ED: Denies dysuria, hematuria or urinary frequency Musculoskeletal Musculoskeletal: Reports back pain; Denies extremity pain or neck pain Integumentary Denies rash or wounds Neurologic Neurologic: Denies headache(s), paresthesias or weakness EXAM Physical Exam Const Vital Signs: 03/08/24 05:49 03/08/24 07:57 Temperature 98.3 F 97.5 F L Temperature Source Oral Pulse Rate 74 84 Respiratory Rate 16 16 Blood Pressure 151/89 H 124/76 H Blood Pressure Mean 109 92 Pulse Ox 97 98 Positive well nourished and well developed General Appearance ED: well developed and NAD HEENT Reports moist mucous membranes normocephalic and atraumatic Eyes EOMs intact bilaterally and conjunctivae normal General Eye ED: Yes normal appearance of both eyes Neck no lymphadenopathy and supple General: Negative for tenderness Chest Wall Chest: Negative for tenderness Resp normal respiratory effort and normal air movement Effort and Inspection: symmetric chest movement; Negative for respiratory distress Cardio regular rate, regular rhythm and no murmurs Peripheral Pulses: pulses 2+ throughout GI normal to inspection, nondistended, normoactive bowel sounds GI Narrative: Tenderness right groin region no masses or rash palpated. Palpation: Negative for guarding or rebound tenderness present Back/Spine no CVA tenderness and no thoracic nor lumbar tenderness Back/Spine Narrative: Tender right flank, no rash. Straight leg test was negative. 1+ patellar reflex bilaterally. Extremity normal to inspection General Extremety ED: Negative for edema or tenderness General Extremity: Negative for edema Neuro oriented x3 and no sensory deficits noted Sensorium / Orientation: awake and alert Skin no rashes or lesions noted and no wounds MDM MDM MDM Narrative Medical decision making narrative: Interventions / MDM: Differential diagnosis: Musculoskeletal pain, flank pain, Diagnosis considered but do not suspect: Kidney stone, however CT negative. Patient My EKG interpretation: N/A Imaging independently reviewed and interpreted by myself: CT abdomen pelvis without contrast: No acute process. External documents reviewed: N/A Test considered but not ordered:N/A ED course: Patient flank pain rating to his groin. Unable to palpate any masses. Does not radiate down the back of his leg. This time we will check CT scan abdomen pelvis, will check basic labs and urine. Morphine and fluids will be given. 0630: Per nursing after morphine given reported spasms in the neck and upper back. No dyspnea. Benadryl IV ordered. 0650: Patient leukocytosis of 17.6, he was started on Medrol Dosepak. CT scan no acute process. Urine noted leukocytes and slight WBCs and 1+ bacteria. He has no urine symptoms. Urine culture sent. Pain was controlled on reexamination. Discussed with patient this time we will continue his steroids muscle relaxers short prescription for oxycodone for pain control. Discussed he will be contacted if culture results are positive for urine. He will follow-up with his PCP. All questions were answered. Re-evaluation: stable Disposition discussed with patient/family/significant other: Patient Case discussed with consulting clinician: N/A This note was generated with [employer] dictation software. It may contain incorrect words, spelling, and punctuation that were not noted in checking the note before signing. Lab Data Attestation: I reviewed the patient's lab results. Labs: Laboratory Results - last 24 hr 03/08/24 03/08/24 06:16 06:55 WBC 17.6 H RBC 5.22 Hgb 14.6 Hct 44.8 MCV 85.8 MCH 28.0 MCHC 32.6 RDW Std Deviation 45.5 H RDW Coeff of Enrique 14.6 Plt Count 293 MPV 10.5 Immature Gran % (Auto) 0.600 Neut % (Auto) 81.1 H Lymph % (Auto) 10.4 L [place] % (Auto) 7.5 Eos % (Auto) 0.2 Baso % (Auto) 0.2 Absolute Neuts (auto) 14.3 H Absolute Lymphs (auto) 1.84 Nucleated RBC % 0 Sodium 139 Potassium 4.0 Chloride 106 Carbon Dioxide 31.0 Anion Gap 2 L BUN 12 Creatinine 1.09 Estim Creat Clear Calc 125.45 Est GFR (MDRD) Af Amer 93 Est GFR (MDRD) Non-Af 77 BUN/Creatinine Ratio 11.0 Glucose 152 H Calcium 8.9 Urine Color Yellow Urine Clarity Sl. Cloudy Urine pH 6.0 Ur Specific [place] 1.015 Urine Protein 30 H Urine Glucose (UA) 100 H Urine Ketones 5 H Urine Occult Blood 10 H Urine Nitrite Negative Urine Bilirubin Negative Urine Urobilinogen Normal Ur Leukocyte Esterase 25 H Urine RBC 0-5 SEEN Urine WBC 5-10 SEEN Ur Squamous Epith Cells 0-5 SEEN Urine Bacteria 1+ Urine Mucus 0 SEEN Radiography Diagnostic Testing: Clinical Impression(s) from Imaging Studies Abdomen/Pelvis CT 03/08/24 06:01 IMPRESSION: Negative CT abdomen and pelvis without oral or IV contrast. Electronically Signed: Malaika Palencia MD at 7:21 EDT Reading Location ID and State: [facility] / [place] Tel , Service support , Discharge Plan Triage Chief Complaint: Other, Pain/Inj ED Provider: Everton Wheat Dx/Rx/DC Orders Clinical Impression: Abdominal wall pain in right flank, Back pain Instructions: ED Flank Pain, Uncertain Cause Prescriptions: New oxycodone-acetaminophen 5-325 mg tablet 1 tab PO Q6H PRN PRN (Reason: Pain) 3 Days Qty: 12 0RF No Action omeprazole 20 MG capsule 20 mg PO DAILY lisinopril 20 mg tablet 20 mg PO DAILY Patient Comments: TAKE 2 TABLETS BY MOUTH ONCE DAILY metformin 500 mg tablet extended release 24 hr 500 mg PO DAILY prednisone 10 mg tablet See Taper PO DAILY Taper: Prednisone Taper 60 mg WITH BREAKFAST for 3 Days 30 mg WITH BREAKFAST for 3 Days 20 mg WITH BREAKFAST for 3 Days 10 mg WITH BREAKFAST for 3 Days cyclobenzaprine 10 mg tablet 10 mg PO TID PRN PRN (Reason: muscle spasm) tizanidine 4 mg capsule 4 mg PO TID Primary Care Provider: Kelechi Jauregui Referrals: Kelehci Jauregui MD [Primary Care Provider] - 3-5 Days Activity Restrictions/Additional Instructions: CT scan negative. Urine culture pending. Continue home medications as prescribed. Use oxycodone as needed. Follow-up with your doctor. Print Language: Kyrgyz Disposition Disposition: Home, Self Care Discharge Date/Time: 03/08/24 08:00
[2024-03-08] MEDS: 0.9% Normal Saline (500mL Bag) 500 ML 999 ML IV (06:25)
[2024-03-08] MEDS: Morphine 4 MG/ML Syringe IV (06:25)
[2024-03-08 06:36] LABS: Absolute Lymphocyte Count 1.84 X10^3/uL (0.83-4.51); Absolute Neutrophil Count 14.3 X10^3/uL (2.0-7.7); Basophil# 0.04 X10^3/uL; Basophil% 0.2 % (0-1); Eosinophil# 0.04 X10^3/uL; Eosinophils% 0.2 % (0-5); Hematocrit 44.8 % (40-54); Hemoglobin 14.6 g/dL (13.0-16.5); Lymphocyte # 1.84 X10^3/ul (0.83-4.51); Lymphocyte % 10.4 % (19-41); Mean Corp Hgb Conc 32.6 g/dL (32-36); Mean Corpuscular Volume 85.8 fL (80-94); Mean Platelet Vol. 10.5 fl (6.2-12.0); Monocyte# 1.32 X10^3/uL; Monocyte% 7.5 % (0-10); NRBC Flagged by Analyzer 0 % (0-5); Neutrophil # 14.29 X10^3/uL (2.7-7.7); Neutrophil % 81.1 % (47-70); Platelet Count 293 K/mm3 (150-450); RBC Distribution Width CV 14.6 % (11.6-14.6); RBC Distribution Width SD 45.5 fl (35.1-43.9); Red Blood Count 5.22 M/mm3 (4.6-6.2); White Blood Count 17.6 K/mm3 (4.4-11.0)
[2024-03-08 06:57] LABS: Anion Gap 2 (5-15); BUN 12 mg/dL (7-18); Calcium,Total 8.9 mg/dL (8.5-10.1); Chloride 106 mmol/L (98-107); Creatinine, Serum 1.09 mg/dL (0.70-1.30); EST Glomerular Filtration Rate 77 mL/min (>60); Est Glom Filt Rate - Afr Amer 93 mL/min (>60); Estimated Creatinine Clearance 125.45 ml/min; Glucose 152 mg/dL (74-106); Sodium Level 139 mmol/L (136-145)
[2024-03-08 07:02] LABS: Mucous, Urine 0 SEEN /hpf (<or=2+)
[2024-03-08 07:03] LABS: Color, Urine Yellow (Yellow); Glucose, Dipstick 100 mg/dl (Normal); Ketone-Dipstick 5 mg/dl (Negative); Leukocyte Esterase-Dipstick 25 /ul (Negative); Nitrite-Dipstick Negative (Negative); Occult Blood-Urine 10 /ul (Negative); Protein-Dipstick 30 mg/dl (Negative); Specific Gravity, Urine 1.015 (1.002-1.030); Urine Bilirubin Dipstick Negative (Negative); Urine Clarity Sl. Cloudy (Clear); Urine Urobilinogen Normal (Normal)
[2024-03-08 07:10] LABS: Bacteria 1+ /hpf (None Seen); Red Blood Cells-Urine 0-5 SEEN /hpf (0-5); Squamous Epithelial Cells - UA 0-5 SEEN /hpf (0-5); White Blood Cells 5-10 SEEN /hpf (0-5)
[2024-03-08 07:57] VITALS: BP 124/76; PULSE 84; RESP 16; TEMP 36.4; O2SAT 98
== END 2024-03-08 08:00 | disposition home or self-care (01) ==
PROVIDERS: Emergency Provider Emergency Medicine; PCP Family Medicine; Visit Provider Emergency Medicine
DX: R10.9 Unspecified abdominal pain (principal); I10 Essential (primary) hypertension; M54.9 Dorsalgia, unspecified; K21.9 Gastro-esophageal reflux disease without esophagitis
CPT/HCPCS: 74176; 80048; 81001; 85025; 87086; 87088; 87186; 96361; 96374; 99283; J7040; A4216